=== PATIENT | male | born 1965 | race African-American/Black ===

== ENCOUNTER 2020-10-14 13:04 | Inpatient (IN) | payer MEDICARE, MEDICAID ==
[~2020-10-14] VITALS: Ht 165.1 cm; Wt 76.2 kg
[2020-10-14] VITALS (16 sets, daily range): BP systolic 106–138; BP diastolic 49–89
[2020-10-14] MEDS ORDERED: METOCLOPRAMIDE HCL 10MG/2ML VIAL IV ONE (14:00)
[2020-10-14] MEDS ORDERED: DIPHENHYDRAMINE 50MG/ML VIAL IV ONE (14:00)
[2020-10-14 15:13] LABS: CHLORIDE 107 mEq/L (98-107)
[2020-10-14 15:17] LABS: BASOPHILS % 0.7 % (0.0-2.0); EOSINOPHILS % 0.2 % (0.0-5.0); HEMATOCRIT. 44.1 % (42.0-52.0); HEMOGLOBIN. 15.9 g/dL (14.0-18.0); LYMPHOCYTES % 19.7 % (20.0-50.0); MEAN CORPUSCULAR HEMOGLOBIN 31.6 pg (28.0-32.0); MEAN CORPUSCULAR VOLUME 87.9 fL (80.0-94.0); MEAN PLATELET VOLUME 7.3 fl (7.4-10.4); MONOCYTES % 7.5 % (2.0-8.0); NEUTROPHILS % 71.9 % (40.0-76.0); PLATELET 219 x1000/uL (130-400); RED BLOOD CELL COUNT 5.02 mill/uL (4.7-6.1); RED CELL DISTRIBUTION WIDTH 14.8 % (11.6-14.6)
[2020-10-14] MEDS ORDERED: LEVETIRACETAM 500MG PREMIX 100 ML IV ONE (15:30)
[2020-10-14] MEDS ORDERED: NICARDIPINE 50 MG in SODIUM CHLORIDE 0.9% 230 ML IV PRN (15:30)
[2020-10-14] MEDS ORDERED: MANNITOL 20% (20GM/100ML) BAG 500ML PREMIX IV ONE (15:30)
[2020-10-14 15:38] LABS: PARTIAL THROMBOPLASTIN TIME 29.1 sec (23.4-31.0); PROTHROMBIN TIME 10.9 sec (9.6-11.0)
[2020-10-14] MEDS ORDERED: MANNITOL 20% 500 ML IV NR (15:45)
[2020-10-14] MEDS ORDERED: MORPHINE SULFATE 2 MG/ML CPJ (NOT FOR IM USE) IV ONE (15:45)
[2020-10-14 15:50] LABS: CLARITY URINE CLEAR (CLEAR); COLOR URINE YELLOW (YELLOW); KETONES URINE NEGATIVE (NEGATIVE); LEUKOCYTE ESTERASE URINE NEGATIVE (NEGATIVE); NITRITE URINE NEGATIVE (NEGATIVE); OCCULT BLOOD URINE NEGATIVE (NEGATIVE); PROTEIN URINE NEGATIVE (NEGATIVE); SPECIFIC GRAVITY URINE 1.023 (1.005-1.030)
[2020-10-14] MEDS ORDERED: NICARDIPINE 100 MG in SODIUM CHLORIDE 0.9% 60 ML IV PRN (16:00)
[2020-10-14] MEDS ORDERED: ONDANSETRON HCL 4MG/2ML INJ IV PRN (18:00)
[2020-10-14] MEDS ORDERED: IPRATROPIUM/ALBUTEROL 0.5-3(2.5)MG/3ML NEB HHN PRN (18:00)
[2020-10-14] MEDS ORDERED: ACETAMINOPHEN 325MG TABLET PO PRN (18:00)
[2020-10-14] MEDS: DEXAMETHASONE 4MG/ML 1ML VIAL IV SCH (19:27)
[2020-10-14 19:30] LABS: *BENZODIAZEPINES SCREEN URINE NEGATIVE (NEGATIVE); *COCAINE SCREEN URINE NEGATIVE (NEGATIVE); METHADONE URINE SCREEN NEGATIVE (NEGATIVE)
[2020-10-14 19:31] LABS: *AMPHETAMINES SCREEN URINE NEGATIVE (NEGATIVE); *BARBITURATES SCREEN URINE NEGATIVE (NEGATIVE); CANNABINOID URINE SCREEN PRESUMTIVE POSITIVE (NEGATIVE); OPIATES URINE SCREEN NEGATIVE (NEGATIVE); PHENCYCLIDINE URINE SCREEN NEGATIVE (NEGATIVE)
[2020-10-14] MEDS: NICARDIPINE 100 MG in SODIUM CHLORIDE 0.9% 60 ML IV PRN (19:43)
[2020-10-14] MEDS ORDERED: DEXTROSE 50% WATER 50ML SYRINGE IV PRN (19:45)
[2020-10-14] MEDS: DEXT 5%/LACTATED RINGERS 1,000 ML IV SCH (20:00)
[2020-10-14] MEDS ORDERED: LEVETIRACETAM 500MG PREMIX 100 ML IV SCH (21:00)
[2020-10-14] MEDS: BLOOD SUGAR DIAGNOSTIC STRIP TEST SCH (21:05)
[2020-10-14] MEDS: INSULIN LISPRO 100 UNITS/ML SUBCUT SCH (21:05)
[2020-10-15] VITALS (81 sets, daily range): BP systolic 53–167; BP diastolic 43–133
[2020-10-15] MEDS: DEXAMETHASONE 4MG/ML 1ML VIAL IV SCH ×5 (00:08→23:45)
[2020-10-15] MEDS: NICARDIPINE 100 MG in SODIUM CHLORIDE 0.9% 60 ML IV PRN ×3 (02:39→17:16)
[2020-10-15 04:43] LABS: BASOPHILS % 0.3 % (0.0-2.0); HEMATOCRIT. 46.4 % (42.0-52.0); HEMOGLOBIN. 16.2 g/dL (14.0-18.0); LYMPHOCYTES % 11.1 % (20.0-50.0); MEAN CORPUSCULAR HEMOGLOBIN 30.9 pg (28.0-32.0); MEAN CORPUSCULAR VOLUME 88.4 fL (80.0-94.0); MEAN PLATELET VOLUME 7.5 fl (7.4-10.4); MONOCYTES % 1.3 % (2.0-8.0); NEUTROPHILS % 87.3 % (40.0-76.0); PLATELET 223 x1000/uL (130-400); RED BLOOD CELL COUNT 5.24 mill/uL (4.7-6.1); RED CELL DISTRIBUTION WIDTH 14.5 % (11.6-14.6)
[2020-10-15 04:55] LABS: CHLORIDE 110 mEq/L (98-107)
[2020-10-15 05:07] LABS: LDL CHOLESTEROL 116 mg/dL (5-100)
[2020-10-15 05:08] LABS: HDL CHOLESTEROL 54 mg/dL (40-59)
[2020-10-15] MEDS: INSULIN LISPRO 100 UNITS/ML SUBCUT SCH ×4 (05:27→22:49)
[2020-10-15] MEDS: BLOOD SUGAR DIAGNOSTIC STRIP TEST SCH ×4 (05:27→20:27)
[2020-10-15] MEDS: LEVETIRACETAM 500MG PREMIX 100 ML IV SCH ×2 (08:58→20:46)
[2020-10-15] MEDS: DEXT 5%/LACTATED RINGERS 1,000 ML IV SCH (08:58)
[2020-10-15] MEDS: DIPHENHYDRAMINE 50MG/ML VIAL IV PRN (20:33)
[2020-10-15] MEDS: MORPHINE SULFATE 2 MG/ML CPJ (NOT FOR IM USE) IV PRN (20:34)
[2020-10-16] VITALS (76 sets, daily range): BP systolic 115–175; BP diastolic 46–116
[2020-10-16] MEDS: NICARDIPINE 100 MG in SODIUM CHLORIDE 0.9% 60 ML IV PRN ×2 (02:38→12:49)
[2020-10-16] MEDS: DEXAMETHASONE 4MG/ML 1ML VIAL IV SCH ×3 (05:27→17:46)
[2020-10-16] MEDS: BLOOD SUGAR DIAGNOSTIC STRIP TEST SCH ×4 (06:21→21:00)
[2020-10-16] MEDS: INSULIN LISPRO 100 UNITS/ML SUBCUT SCH ×4 (06:49→22:21)
[2020-10-16] MEDS: DEXT 5%/LACTATED RINGERS 1,000 ML IV SCH ×2 (08:42→17:46)
[2020-10-16] MEDS: NICOTINE 21MG PATCH TD SCH (08:43)
[2020-10-16] MEDS: LEVETIRACETAM 500MG PREMIX 100 ML IV SCH ×2 (08:43→21:45)
[2020-10-16] MEDS ORDERED: NICOTINE 7MG PATCH TD SCH (09:00)
[2020-10-16] MEDS: MORPHINE SULFATE 2 MG/ML CPJ (NOT FOR IM USE) IV PRN ×2 (09:08→22:15)
[2020-10-16] MEDS: AMLODIPINE 5MG TABLET PO SCH (10:09)
[2020-10-16] MEDS: LOSARTAN POTASSIUM 50 MG TABLET PO SCH (12:48)
[2020-10-16] MEDS ORDERED: LOSARTAN POTASSIUM 50 MG TABLET PO SCH (13:00)
[2020-10-16] MEDS: DIPHENHYDRAMINE 50MG/ML VIAL IV PRN (22:07)
[2020-10-17] VITALS (43 sets, daily range): BP systolic 109–160; BP diastolic 45–116
[2020-10-17] MEDS: CLONIDINE 0.1MG TABLET PO PRN ×2 (00:45→06:59)
[2020-10-17] MEDS: DIPHENHYDRAMINE 50MG/ML VIAL IV PRN ×2 (03:55→12:21)
[2020-10-17] MEDS: BLOOD SUGAR DIAGNOSTIC STRIP TEST SCH ×4 (06:30→21:11)
[2020-10-17] MEDS: INSULIN LISPRO 100 UNITS/ML SUBCUT SCH ×4 (07:10→21:12)
[2020-10-17] MEDS ORDERED: ASPI-1497 PO (09:04)
[2020-10-17] MEDS ORDERED: LORA10TA7 PO (09:14)
[2020-10-17] MEDS ORDERED: CALC-1249 PO (09:14)
[2020-10-17] MEDS ORDERED: BENA1TAB18 MT (09:14)
[2020-10-17] MEDS ORDERED: ATOR40TA70 PO (09:14)
[2020-10-17] MEDS ORDERED: DOCU100T PO (09:14)
[2020-10-17] MEDS ORDERED: OMEP40CA12 PO (09:14)
[2020-10-17] MEDS ORDERED: KETO5DRO7 EACHEYE (09:14)
[2020-10-17] MEDS ORDERED: TAMS-11 PO (09:14)
[2020-10-17 09:16] LABS: HEMATOCRIT. 46.4 % (42.0-52.0); MEAN CORPUSCULAR HEMOGLOBIN 31.1 pg (28.0-32.0); MEAN CORPUSCULAR VOLUME 90.3 fL (80.0-94.0); MEAN PLATELET VOLUME 7.2 fl (7.4-10.4); PLATELET 220 x1000/uL (130-400); RED BLOOD CELL COUNT 5.13 mill/uL (4.7-6.1); RED CELL DISTRIBUTION WIDTH 14.6 % (11.6-14.6)
[2020-10-17 09:23] LABS: CHLORIDE 104 mEq/L (98-107)
[2020-10-17] MEDS: AMLODIPINE 5MG TABLET PO SCH (09:27)
[2020-10-17] MEDS: LEVETIRACETAM 500MG PREMIX 100 ML IV SCH ×2 (09:27→21:12)
[2020-10-17] MEDS: LOSARTAN POTASSIUM 50 MG TABLET PO SCH (09:27)
[2020-10-17] MEDS: MORPHINE SULFATE 2 MG/ML CPJ (NOT FOR IM USE) IV PRN (09:28)
[2020-10-17] MEDS: NICOTINE 21MG PATCH TD SCH (09:28)
[2020-10-17] MEDS: DEXT 5%/LACTATED RINGERS 1,000 ML IV SCH (11:00)
[2020-10-17 12:10] LABS: PLATELET ESTIMATE NORMAL
[2020-10-18] VITALS (7 sets, daily range): BP systolic 114–153; BP diastolic 68–94
[2020-10-18] MEDS: DEXT 5%/LACTATED RINGERS 1,000 ML IV SCH (00:21)
[2020-10-18] MEDS: CLONIDINE 0.1MG TABLET PO PRN (01:14)
[2020-10-18] MEDS: INSULIN LISPRO 100 UNITS/ML SUBCUT SCH ×2 (06:41→11:52)
[2020-10-18] MEDS: BLOOD SUGAR DIAGNOSTIC STRIP TEST SCH ×2 (06:41→11:52)
[2020-10-18] MEDS: NICOTINE 21MG PATCH TD SCH (09:09)
[2020-10-18] MEDS: LOSARTAN POTASSIUM 50 MG TABLET PO SCH (09:09)
[2020-10-18] MEDS: AMLODIPINE 5MG TABLET PO SCH (09:09)
[2020-10-18] MEDS: LEVETIRACETAM 500MG PREMIX 100 ML IV SCH (09:10)
[2020-10-18] MEDS ORDERED: LOSA50TA3 PO (15:12)
[2020-10-19] MEDS ORDERED: OMEPRAZOLE 20MG CAPSULE EXTENDED RELEASE PO SCH (06:45)
[2020-10-19] MEDS ORDERED: TAMSULOSIN HCL 0.4MG SR CAPSULE PO SCH (09:00)
[2020-10-19] MEDS ORDERED: LORATADINE 10MG TABLET PO SCH (09:00)
[2020-10-19] MEDS ORDERED: ATORVASTATIN CALCIUM 40MG TABLET PO SCH (09:00)
== END 2020-10-18 16:20 | disposition home or self-care (01) | DRG 64 ==
LOC: ER 13:04 → MICUNO 16:26 → ENRESERV 16:49 → 5WST 10-17 20:25
PROVIDERS: ADMIT Internal Medicine; ATTEND Internal Medicine
DX: I61.5 Nontraumatic intracerebral hemorrhage, intraventricular (principal); G93.41 Metabolic encephalopathy; G91.9 Hydrocephalus, unspecified; I16.0 Hypertensive urgency; I60.9 Nontraumatic subarachnoid hemorrhage, unspecified; F32.9 Major depressive disorder, single episode, unspecified; E78.5 Hyperlipidemia, unspecified; I10 Essential (primary) hypertension; D72.829 Elevated white blood cell count, unspecified; F12.90 Cannabis use, unspecified, uncomplicated; R73.9 Hyperglycemia, unspecified; F17.210 Nicotine dependence, cigarettes, uncomplicated; Z79.82 Long term (current) use of aspirin
CPT/HCPCS: 36415; 71045; 80048; 80053; 80061; 80305; 80320; 81003; 82962; 83036; 84443; 84484; 85025; 92610; 93005; 93970; 97161; 97166; 97530; 99285; J1100; J1200; J1815; J1953; J2270; J3490; J7050; G0480

== ENCOUNTER 2022-07-28 14:53 | Emergency (ER) | payer OTHER, MEDICAID ==
[~2022-07-28] VITALS: Ht 165.1 cm; Wt 82.0 kg
[~2022-07-28 14:53] MED LIST: ATOR40TA70 PO; CALC-1249 PO; DOCU100T PO; KETO5DRO7 EACHEYE; LORA10TA7 PO; LOSA50TA3 PO; OMEP40CA20 PO; TAMS-11 PO
[2022-07-28] MEDS ORDERED: IBUPROFEN 400MG TABLET PO ONE (16:30)
[2022-07-28] MEDS ORDERED: ACETAMINOPHEN 325MG TABLET PO ONE (16:30)
[2022-07-28 17:13] VITALS: BP 127/80
[2022-07-28] MEDS ORDERED: ACET-2708 MT (18:31)
[2022-07-28] MEDS ORDERED: IBUP-2028 MT (18:31)
== END 2022-07-28 18:50 | disposition home or self-care (01) ==
LOC: ER 14:53
DX: M25.522 Pain in left elbow (principal); I10 Essential (primary) hypertension; E78.00 Pure hypercholesterolemia, unspecified; Z98.890 Other specified postprocedural states; Z86.73 Personal history of transient ischemic attack (TIA), and cerebral infarction without residual deficits
CPT/HCPCS: 73080; 99283